=== PATIENT | male | born 1990 | race Caucasian/White ===

== ENCOUNTER 2018-04-18 23:15 | Emergency (ER) | payer SELFPAY ==
[2018-04-18 23:24] VITALS: BP 151/85; PULSE 72; TEMP 98.4; BMI 23.7
--- NOTE | 2018-04-18 23:27 | PDOC ---
History of Present Illness - History of Present Illness Initial Comments: 04/18/18 23:31 The patient is a 27 year old male, with no significant past medical history, who presents to the emergency department with, a laceration to the right lower lip and diffuse abrasions to his hands. As per patient, approximately 45 minutes prior to his arrival he was walking his dog when he tripped over a slab of concrete lacerating his lip and causing abrasions to his hands. He notes active bleeding to the affected area. He is unaware of his last tetanus shot. He denies any loss of consciousness. He denies any recent fevers, chills, headache or dizziness. He denies any recent nausea, vomit, diarrhea or constipation. He denies any recent chest pain or shortness of breath. He denies any recent dysuria, frequency, urgency or hematuria. Allergies: NKDA <James Porras - Last Filed: 04/18/18 23:31> - General History Source: Patient Exam Limitations: No Limitations <Amberly Murillo - Last Filed: 04/19/18 00:22> - General Chief Complaint: Injury Stated Complaint: FACIAL LAC Time Seen by Provider: 04/18/18 23:20 Past History <James Porras - Last Filed: 04/18/18 23:31> <Amberly Murillo - Last Filed: 04/19/18 00:22> - Past Medical History Allergies/Adverse Reactions: Allergies Allergy/AdvReac Type Severity Reaction Status Date / Time No Known Allergies Allergy Unverified 04/18/18 23:17 Home Medications: Ambulatory Orders Amoxicillin/Potassium Clav [Augmentin 875-125 Tablet] 1 each PO BID 7 Days #14 tablet 04/18/18 Chlorhexidine Gluconate [Peridex -] 15 ml MM ONCE #14 cup 04/18/18 Review of Systems - Review of Systems Able to Perform ROS?: Yes Comments:: 04/18/18 23:32 GENERAL/CONSTITUTIONAL: No fever or chills. No weakness. HEAD, EYES, EARS, NOSE AND THROAT: No change in vision. No ear pain or discharge. No sore throat. CARDIOVASCULAR: No chest pain or shortness of breath. RESPIRATORY: No cough, wheezing, or hemoptysis. GASTROINTESTINAL: No nausea, vomiting, diarrhea or constipation. GENITOURINARY: No dysuria, frequency, or change in urination. MUSCULOSKELETAL: No joint or muscle swelling or pain. No neck or back pain. +SKIN: Laceration to the right lower lip and diffuse abrasions to the hands. NEUROLOGIC: No headache, vertigo, loss of consciousness, or change in strength/ sensation. ENDOCRINE: No increased thirst. No abnormal weight change. HEMATOLOGIC/LYMPHATIC: No anemia, easy bleeding, or history of blood clots. ALLERGIC/IMMUNOLOGIC: No hives or skin allergy. All Other Systems: Reviewed and Negative <James Porras - Last Filed: 04/18/18 23:31> *Physical Exam - Vital Signs Last Vital Signs Temp Pulse Resp BP Pulse Ox 98.4 F 72 16 151/85 100 04/18/18 23:18 04/18/18 23:18 04/18/18 23:18 04/18/18 23:18 04/18/18 23:18 <James Porras - Last Filed: 04/18/18 23:31> - Physical Exam Comments: 04/18/18 23:31 on exam pt awake alert. face with right sided lower lip with through and through punctate laceration, right lower cheek with through and through laceration 1.5 cm. no dental laxity. no jaw malloclusion. bilat hand with superifical laceration. lungs clear bilateraly heart rrr no mrg. <Amberly Murillo - Last Filed: 04/19/18 00:22> Moderate Sedation - Procedure Monitoring Vital Signs: Procedure Monitoring Vital Signs Temperature 98.4 F 04/18/18 23:18 Pulse Rate 72 04/18/18 23:18 Respiratory Rate 16 04/18/18 23:18 Blood Pressure 151/85 04/18/18 23:18 O2 Sat by Pulse Oximetry (%) 100 04/18/18 23:18 <James Porras - Last Filed: 04/18/18 23:31> Procedures - Laceration/Wound Repair Right Lower Lateral Lip Wound Length: to 2.5 cm Wound Explored: contaminated Wound's Depth, Shape: stellate Irrigated w/ Saline: Yes Betadine Prep: Yes Anesthesia: 1% Lidocaine Wound Repaired With: Sutures Suture Size/Type: 6:0, nylon Number of Sutures: 6 Layer Closure: Yes Deep Layer Suture Size/Type: 6:0, chromic Number of Deep Layer Sutures: 2 Sterile Dressing Applied: Yes <Amberly Murillo - Last Filed: 04/19/18 00:22> Medical Decision Making - Medical Decision Making 04/18/18 23:21 27 yo male with no pmhx here s/p trip and fall. states was walking dog and fell onto a concrete slab. sustaingin laceration/ abrasions to bilateral hands and face. happened just 1 hr prior to arrival. last tetanus is unknown. no other injuries sustained during fall. on exam pt awake alert. face with right sided lower lip with through and through punctate laceration, right lower cheek with through and through laceration 1.5 cm. no dental laxity. bilat hand with superifical laceration. lungs clear bilateraly heart rrr no mrg. plan will irrigate copiously. due to face through and through and pt hands and wounds soiled. will irrigate copiously and start on prophylactic antiobiotics given rx for augmentin. 04/19/18 00:19 through and through laceration . cheeck repaired with 6.0 nylon. tooth number 7 upper incisor with chip just below enamel. no laxity. inner lip lacs left to heal secondarily due to contamination and high risk infection. <Amberly Murillo - Last Filed: 04/19/18 00:22> *DC/Admit/Observation/Transfer - Attestations Scribe Attestion: 04/18/18 23:32 Documentation prepared by James Porras, acting as medical liaison for Amberly Murillo MD. <James Porras - Last Filed: 04/18/18 23:31> <Amberly Murillo - Last Filed: 04/19/18 00:22> Diagnosis at time of Disposition: Laceration of lip, complicated, Facial laceration - Discharge Dispostion Disposition: HOME Condition at time of disposition: Improved - Prescriptions Prescriptions: Amoxicillin/Potassium Clav [Augmentin 875-125 Tablet] 1 each PO BID 7 Days #14 tablet Chlorhexidine Gluconate [Peridex -] 15 ml MM ONCE #14 cup - Patient Instructions Printed Discharge Instructions: Laceration Repair, DI for Laceration Repair -- Complex Additional Instructions: your stitches should be removed in 6 days. return here for suture removal. you need to take augmentin 875 mg twice daily for one week. return for any redness, swelling, fever or any signs of infection. you should also use peridex mouth wash swish and spit twice daily for one week. you can apply over the counter topical bacitracin to your hand abrasions and scrapes twice daily. wash with mild soap and water. you were given a tetanus shot today.
[2018-04-18] MEDS ORDERED: AMOX TR/POT CLAV 875MG/125MG TABLETS (FP) PO ONE (23:30)
[2018-04-18] MEDS ORDERED: DIPHTH,PERTUSS(ACELL),TET 0.5 ML DISP.SYRIN IM ONE (23:30)
[2018-04-19] MEDS ORDERED: AMOX TR/POT CLAV 875MG/125MG TABLETS (FP) ONE (00:07)
[2018-04-19] MEDS ORDERED: DIPHTH,PERTUSS(ACELL),TET 0.5 ML DISP.SYRIN IM ONE (00:07)
== END 2018-04-19 00:20 | disposition home or self-care (01) ==
LOC: FER 23:15
PROC: 0CQ1XZZ Repair Lower Lip, External Approach (ICD-10-PCS; principal; 2018-04-18)
DX: S01.511A Laceration without foreign body of lip, initial encounter (principal); R05 Cough; W01.0XXA Fall on same level from slipping, tripping and stumbling without subsequent striking against object, initial encounter; Y93.K1 Activity, walking an animal; Y92.89 Other specified places as the place of occurrence of the external cause
CPT/HCPCS: 90715; 99282-25